=== PATIENT | female | born 1945 | race Caucasian/White ===

== ENCOUNTER → 2018-12-26 | Outpatient (CLI) | payer MEDICARE, BC, OTHER | LOC: M.RAD 10:00 | DX: Z12.31 Encounter for screening mammogram for malignant neoplasm of breast (principal) ==

== ENCOUNTER → 2019-01-09 | Outpatient (CLI) | payer MEDICARE, BC, OTHER | LOC: M.RAD 12-27 13:10 | DX: N63.21 Unspecified lump in the left breast, upper outer quadrant (principal) ==

== ENCOUNTER → 2019-01-15 | Outpatient (CLI) | payer MEDICARE, BC, OTHER ==
--- NOTE | 2019-01-17 17:07 | PATH ---
[address] [address] PATHOLOGY RPT PROCEDURE Name: JESSICA PONCE Room: [facility] Tony#: [id number] Admission: 01/15/19 Date of : 45 Discharge: Report #: [id number] Path Case #: [id number] [facility] Accession Number: [id number] . 01 Material submitted: . LEFT BREAST, 2:00, 5CMFN . 01 Clinical history: . 0.87 x 0.63 x 0.81 cm . 02 Diagnosis: Left breast, 2:00, 5 cm from nipple, image guided core biopsy: - INFILTRATING LOBULAR CARCINOMA, LOW-GRADE, SPANNING 1 CM, ASSOCIATED WITH PROMINENT LOBULAR CARCINOMA IN SITU. SEE COMMENT. (DANIEL:seferino; 01/17/2019) MBR/01/17/2019 . 02 Comment: Specimen type: Image guided core biopsy Tumor site: Left breast, 2:00, 5 cm from nipple Tumor quantitation: Approximately 25% of submitted tissues Histologic type: Classic lobular carcinoma Histologic grade: I of III (low-grade) Tubules, nuclei and mitoses: 2, 1, 1 LVSI: Not identified Microcalcifications: Not identified Markers: Breast tumor profile pending Block: A3 . . Multiple tissue cores show foci of infiltrating tumor with a predominance of "Montserratian filing" as well as small nests and focal tubule formation (tubulolobular). Abundant lobular carcinoma in situ, generally low nuclear grade but noted focally to have higher nuclear grade features, are seen within multiple cores and not associated with immediately adjacent infiltrating tumor. Properly controlled E-cadherin stain performed on A2 shows the infiltrating tumor cells as well as in situ components to be negative, supporting the classification. Breast tumor profile studies are pending on A3 and will be the subject of an addendum report. Jessica Ricci ([facility] Breast Navigator) notified at approximately 1035 on 01/17/2019. Reviewed with Dr. Blayne Potter who agrees with the diagnosis. (DANIEL:seferino; 01/17/2019) . 02 Electronically signed: . Quinton Mace MD, Pathologist NPI- [id number] . 01 [place] [address] PATHOLOGY RPT PROCEDURE Name: JESSICA PONCE Room: [facility]#: [id number] Admission: 01/15/19 Date of : 45 Discharge: Report #: [id number] Path Case #: [id number] Gross description: . Received in formalin labeled "Jessica Ponce, left breast 2:00 5 cm FN," are multiple needle cores of yellow-zamora fibrofatty tissue measuring 3.1 x 3.6 x 0.7 cm in aggregate dimensions. The tissue is submitted in its entirety in cassettes A1 through A3. The cold ischemic time is less than 1 minute. The total formalin fixation time is 12 hours and 15 minutes. (TSD; 01/15/2019) TOB/TOB . 02 Pathologist provided ICD-10: C50.012 . 02 CPT . 070770, C14208 Specimen Comment: A courtesy copy of this report has been sent to Specimen Comment: [phone], , . Specimen Comment: Report sent to ,DR HUGHES / DR HEBERT Performed at: 01 [facility] [address], [place], [place] [id number] MD Bryce Sol MD Phone: [phone] Performed at: 02 [facility] [place] [address], [place], [place] [id number] MD Quinton Mace MD Phone: [phone]
== END | disposition home or self-care (01) ==
LOC: M.ULTRA 08:13
DX: C50.412 Malignant neoplasm of upper-outer quadrant of left female breast (principal)

== ENCOUNTER → 2019-01-29 | Outpatient (CLI) | payer MEDICARE, BC, OTHER ==
[~2019-01-29] MED LIST: ALEVE220 MG PO; ALL DAY ALLERGY10 M3 PO; B12INJ IM; BENTYL 10 MG CA10 M1 PO; CLOBETASOL PROP15 GM TOP; LEXAPRO20 MG PO; LOPERAMIDE2 MG PO; MULTIPLE VITAM1 EAC2 PO; SYNTHROID125 MC1 PO; TOVIAZ4 M1 PO; TUMS PO; VITAMIN D3400 UNIT PO
[2019-01-29 13:57] LABS: CREATININE 0.9 mg/dL (0.6-1.3)
== END ==
LOC: M.LAB 13:26 → M.MRI 14:30
PROVIDERS: Surgery
DX: C50.912 Malignant neoplasm of unspecified site of left female breast (principal); N63.23 Unspecified lump in the left breast, lower outer quadrant; R92.2 Inconclusive mammogram

== ENCOUNTER → 2019-02-08 | Outpatient (CLI) | payer MEDICARE, BC, OTHER ==
--- NOTE | ~2019-02-08 | ONC ---
[address] [address] RADIATION ONCOLOGY NOTE Name: JESSICA PONCE Room: [employer].#: [id number] Admission: 02/08/19 Attend Phys: Karri Li MD Discharge: Date of : 45 Report #: [id number] THIS REPORT FOR: //name// CC: Karri Corbett DATE OF SERVICE: 02/08/2019 RADIATION ONCOLOGY CONSULTATION NOTE REFERRING PHYSICIANS: Include Adnrae Blake M.D. PRIMARY SITE AND HISTOPATHOLOGY: The patient has an early infiltrating lobular carcinoma of the left breast at this point. HISTORY OF PRESENT ILLNESS: The patient is a 73-year-old woman, who had a bilateral mammogram on 12/26/2018, which revealed a 1.1 cm focal asymmetry at the 2 o'clock position of the left breast. She had a left breast ultrasound, which revealed a 0.65 cm x 0.85 cm x 1.3 cm lesion in the upper outer quadrant of the left breast. The patient had a biopsy of that area on 01/15/2019 and that revealed an infiltrating lobular carcinoma at 2 o'clock position of the left breast, it was low grade and spanned about 1 cm. The patient had an MRI of both breasts on 01/29/2019, which revealed a mass in the left breast at the 2 o'clock position measuring 1.5 cm with post-biopsy changes. The patient presents to discuss her treatment options. PAST MEDICAL HISTORY AND PAST SURGICAL HISTORY: Includes osteoarthritis, hearing loss, cataracts. She had a cholecystectomy in the past. She was treated for a fractured wrist in the past. MEDICATIONS: Include 125 mcg of levothyroxine per day, dicyclomine, Toviaz, escitalopram. She takes Aleve as needed, Zyrtec. She uses ketaconazole cream p.r.n. Loperamide as needed. ALLERGIES: INCLUDE PENICILLIN, DARVON, CEFACLOR. OBSTETRICS: Menarche at age 12, menopause in 1987. She is 0, para 0. She is an adopted child. FAMILY HISTORY: Mother had breast cancer, father had lung cancer and a brother had esophageal cancer. SOCIAL HISTORY: The patient is retired. She is . Ethanol, she does not drink alcohol containing drinks. Cigarettes, she does not smoke cigarettes. REVIEW OF SYSTEMS: [place] [address] RADIATION ONCOLOGY NOTE Name: JESSICA PONCE Room: [facility]#: [id number] Admission: 02/08/19 Attend Phys: Karri Li MD Discharge: Date of : 45 Report #: [id number] GENERAL: She denied having any fevers or chills. SKIN: She said that she uses the ketaconazole shampoo for rash that her recreational aide is treating on her scalp. LYMPH NODES: She denied having enlarged or painful glands in the underarms. ENDOCRINE: She denied having any hot or cold intolerance. HEMATOLOGY/IMMUNOLOGY: Denied having any recent bleeding. MUSCULOSKELETAL: She has osteoarthritis. HEAD AND NECK: She denied having any headaches. RESPIRATORY: She denied having any shortness of breath. CARDIOVASCULAR: She denied having palpitations. GASTROINTESTINAL: She states she has diarrhea and takes dicyclomine as well as Lomotil as needed. NEUROLOGIC: Because of arthritis, she says she has balance issues. PHYSICAL EXAMINATION: With my nurse, Gladys Wagner present: VITAL SIGNS: Height 5 feet 4 inches, weight 276.6 pounds, blood pressure 120/72, pulse 84, respirations 24, oxygen saturation 96%. LYMPH NODES: She had no palpable cervical, supraclavicular or axillary lymphadenopathy. GENERAL AND PSYCHIATRIC: She was alert, oriented, in no acute distress. EYES: Pupils are equal, round, react to light and accommodation. Extraocular movement was intact. HEART: Had a regular rate and rhythm without murmur. LUNGS: Clear to auscultation. BREASTS: Left breast had no suspicious palpable masses. BREASTS: Right breast had no suspicious palpable masses. ABDOMEN: Nontender. Spleen was not palpable. Liver was at the costal margin. EXTREMITIES: Had no clubbing, cyanosis or edema. ASSESSMENT AND PLAN: The patient was told that her local treatment options include mastectomy versus breast conservation therapy. I told her that with mass that is based on studies such as NSABP B-06, where patients with early breast cancers were randomized to total mastectomy versus lumpectomy alone versus lumpectomy and radiation therapy. At 20 years followup, there is no difference in overall survival. In the addition of radiation therapy to lumpectomy reduced local failure from 39%-14%. She was told that in case of mastectomy that most of the people do not receive postoperative radiation therapy. In that situation, except they have a higher risk features that put her at high risk for local recurrence, such as involved lymph nodes. She has breast conservation therapy that radiation therapy would be indicated for lymph nodes were involved. It would be optional if she did not have lymph nodes involved and her tumor was less than 2 cm. The tumor was 90% estrogen receptor positive, 80% progesterone receptor positive and HER-2 negative that is based on the CALGB study, which randomize patients of over 70 years of age with T1 estrogen receptor-positive breast cancers with no lymph node involvement to tamoxifen alone versus radiation therapy and tamoxifen and at 10 [place] [address] RADIATION ONCOLOGY NOTE Name: JESSICA PONCE Room: [employer].#: [id number] Admission: 02/08/19 Attend Phys: Karri Li MD Discharge: Date of : 45 Report #: [id number] no difference in survival, but the radiation therapy did lower the local recurrence rate from 10%-2%. So the risks, benefits and logistics of radiation therapy were explained to the patient in detail. The patient right now wants to try to proceed with lumpectomy if possible and I asked the patient to return for followup appointment to see me after surgery was completed to review the pathology and then finalize the management plan. Thank you very much for this consult. By: [id number] Li MD /diego
== END ==
LOC: M.RTH 05:03
DX: C50.912 Malignant neoplasm of unspecified site of left female breast (principal); M19.90 Unspecified osteoarthritis, unspecified site; Z90.49 Acquired absence of other specified parts of digestive tract; Z79.899 Other long term (current) drug therapy; Z88.8 Allergy status to other drugs, medicaments and biological substances; Z88.0 Allergy status to penicillin; Z92.21 Personal history of antineoplastic chemotherapy

== ENCOUNTER → 2019-02-27 | Day surgery (SDC) | payer MEDICARE, BC, OTHER ==
[~2019-02-27] MED LIST changes: +VITAMIN B-12500 MCG PO
[2019-02-27 10:49] LABS: HEMATOCRIT 41.3 % (37.0-47.0); HEMOGLOBIN 13.9 gm/dL (12.0-15.0); MCH 30.3 pg (26.0-34.0); MCHC 33.6 g/dL (28.0-37.0); MCV 90.1 fL (80.0-100.0); MPV 7.3 fl. (7.2-11.1); RBC 4.58 mil/uL (4.20-5.00); RDW-CV 13.9 % (10.5-14.5); WBC 7.3 thou/uL (4.0-11.0)
[2019-02-27 10:59] LABS: CALCIUM 9.4 mg/dL (8.5-10.1); CREATININE 1.1 mg/dL (0.6-1.3); POTASSIUM 3.8 mmol/L (3.5-5.1)
--- NOTE | 2019-02-27 15:39 | EKG ---
[place] [address] ELECTROCARDIOGRAM REPORT Name: JESSICA PONCE Room: [facility].#: [id number] Admission: 02/27/19 Attend Phys: Jessica Chua DO Discharge: Date of : 45 Report #: [id number] THIS REPORT FOR: //name// [facility] Test Date: 2019-02-27 Test Time: 11:04:11 Pat Name: JESSICA KRIS Department: Room: Gender: Research Attorney: : 1945 Requested By: Jessica Cuha Order Number: [id number] Ramon MD: Daniel Jackson Measurements Intervals [place] Rate: 67 P: 16 HI: 209 QRS: -15 QRSD: 91 T: 26 QT: 479 QTc: 506 Interpretive Statements Sinus rhythm Borderline left axis deviation Low voltage, precordial leads Prolonged QT interval No previous ECG available for comparison Electronically Signed On 02-27-2019 15:39:00 CDT by Daniel Jackson [email or web address] <ELECTRONICALLY SIGNED> By: Daniel Jackson MD, [facility] 02/27/19 1539 1104 03 Daniel Jackson MD, FACC /EPI
--- NOTE | 2019-03-06 16:06 | PATH ---
[address] [address] PATHOLOGY RPT PROCEDURE Name: JESSICA PONCE Room: [facility]..#: [id number] Admission: 02/27/19 Date of : 45 Discharge: Report #: [id number] Path Case #: [id number] LCA Accession Number: [id number] . 01 Material submitted: . PART A: breast - LEFT BREAST MASS, SHORT SUPERIOR, LONG LATERAL. Modifiers: left PART B: lymph node - LEFT SENTINEL LYMPH NODE. Modifiers: left . 01 Clinical history: . Left breast neoplasm, left breast lobular carcinoma in situ . 02 Diagnosis: A. LEFT BREAST MASS: - MULTICENTRIC LOBULAR CARCINOMA, LOW GRADE, IN THREE SEPARATE FOCI MEASURING 6 MM X 6 MM X 3 MM ("POSSIBLE NODULE"), 18 X 12 X 10 MM ("MASS #1"), AND 20 X 11 X 10 MM ("MASS #2"), WITH INVOLVEMENT OF INKED DEEP MARGIN (TOWARDS LATERAL ASPECT) BY "MASS #2". - EXTENSIVE LOBULAR CARCINOMA IN SITU, LOW GRADE. - Changes of prior biopsy. See comment. . B. Left sentinel lymph node: - One benign lymph node (0/1). See comment. LBQ/03/05/2019 . 02 Comment: Surgical Pathology Cancer Case Summary INVASIVE CARCINOMA OF THE BREAST . Procedure ___ Wire localization lumpectomy Specimen Laterality ___ Left + Tumor Site + ___ Not specified Tumor Size ___ Greatest dimension of largest invasive focus >1 mm: 20 mm Histologic Type ___ Invasive lobular carcinoma . Histologic Grade (Karel Histologic Score) . Glandular (Acinar)/Tubular Differentiation ___ Score 3 (<10% of tumor area forming glandular/tubular structures) Nuclear Pleomorphism ___ Score 1 (nuclei small with little increase in size in comparison with normal breast epithelial cells, regular outlines, uniform nuclear chromatin, little variation in size) [place] [address] PATHOLOGY RPT PROCEDURE Name: JESSICA PONCE Room: [facility] M.R.#: [id number] Admission: 02/27/19 Date of : 45 Discharge: Report #: [id number] Path Case #: [id number] Mitotic Rate ___ Score 1 (< or equal to 3 mitoses per mm2 Overall Grade ___ Grade 1 (scores of 3, 4, or 5) . + Tumor Focality + ___ Multiple foci of invasive carcinoma + ___ Number of foci: 3 + Sizes of individual foci: 6x6x3 mm, 61r36h95 mm, and 68u58r76 mm . Ductal Carcinoma In Situ (DCIS) ___ Not identified + Lobular Carcinoma In Situ (LCIS) + ___ Present . Margins Invasive Carcinoma Margins ___ Positive for invasive carcinoma ___ Margin: Deep (towards lateral) DCIS Margins ___ Not applicable (no DCIS in specimen) . Regional Lymph Nodes ___ Uninvolved by tumor cells Number of Lymph Nodes Examined: 1 Number of Brewster Nodes Examined: 1 . Treatment Effect + ___ No known presurgical therapy + Lymphovascular Invasion + ___ Not identified + Dermal Lymphovascular Invasion + ___ No skin present . PATHOLOGIC STAGE CLASSIFICATION (pTNM, AJCC 8TH EDITION) TNM Descriptors ___ m (multiple foci of invasive carcinoma) Primary Tumor (invasive carcinoma) pT ___ pT1: Tumor less than or equal to 20 mm in greatest dimension Regional Lymph Nodes (pN) Modifier ___ (sn): Brewster node evaluated. Category (pN) ___ pN0: No regional lymph node metastasis identified or ITCs only + Additional Pathologic Findings + Specify: Changes of prior biopsy + Ancillary Studies + Estrogen Receptor (ER) + ___ Positive 90% [place] [address] PATHOLOGY RPT PROCEDURE Name: JESSICA PONCE [facility] [id number] Admission: 02/27/19 Date of : 45 Discharge: Report #: [id number] Path Case #: [id number] + Progesterone Receptor (PgR) + ___ Positive 80% + HER2 (by immunohistochemistry) + ___ Negative (Score 1+)/Not overexpressed + Ki-67 + ___ 5% (025-[id number] A3) + Microcalcifications + ___ Not identified + Clinical History Prior history of breast cancer site diagnosis: Previous left breast 2:00 5 cm from nipple image guided core biopsy showing infiltrating lobular carcinoma, low grade, spanning 10 mm with prominent LCIS ([id number]-[id number]). . . Lobular carcinoma is seen to involve the deep margin near the lateral aspect in sections taken from "mass #2" (A16 and A19) where there is an approximately 5 mm span of involvement (A19). The next closest approach to a margin is seen in a tissue section taken from adjacent to the "possible nodule" where a focus is located 8 mm away from the superficial margin (A2). This same focus is located 10 mm away from the next closest approach to a margin (medial) by neoplasm (A2). . Extensive LCIS is seen in sections taken from throughout the specimen. A properly controlled keratin AE1/AE3 immunohistochemical stain is performed on both B1 and B2 and reveals no evidence of metastatic tumor. (DANIEL/db; 03/05/2019) . 02 Electronically signed: . Quinton Mace MD, Pathologist NPI- [id number] . 01 Gross description: . A. The specimen is received in formalin, labeled " Jessica Ponce, left breast mass, short superior, long lateral", is a 55 g, oriented, fibroadipose tissue with sutures: Short = superior, long = lateral, with a needle wire coursing from mid anterior to inferior, adjacent to lateral margin. The specimen measures: superior to inferior = 6.0 cm, medial to lateral = 5.4 cm and superficial to deep = 2.8 cm. The specimen is inked as follows: Superior = red, inferior = green, medial = orange, lateral = yellow, superficial = blue and deep = black. The specimen is serially sectioned from superior to inferior into 15 slices. (Slice #1 = superior and slice #15 = inferior margins) to reveal a possible nodule and two masses. The nodule measures 0.6 x 0.6 x 0.3 cm (slice #8 and 9). The nodule is 0.9 cm to the closest deep margin and 1.3 cm from the closest superficial margin and greater than 2.0 cm from the remaining margins. Mass #1 is on the medial aspect and is 0.9 cm from the nodule. Mass #1 measures 1.8 x 1.2 x 1.0 cm (slice 9 to slice #12) and abuts the medial and deep margins and is 1.0 cm from superficial and greater than 2.0 cm from the remaining margins. Mass #2 is 1.7 cm lateral to Mass #1 [place] [address] PATHOLOGY RPT PROCEDURE Name: JESSICA PONCE Room: [facility]#: [id number] Admission: 02/27/19 Date of : 45 Discharge: Report #: [id number] Path Case #: [id number] measures 2.0 x 1.1 x 1.0 cm (slice #11 to #15) and abuts the lateral, deep and inferior margins and is greater than 2.0 cm from the remaining margins. Both the masses are ricci-white, solid, with infiltrative borders. The remaining parenchyma is yellow and fatty, with zamora-white fibrous strands interspersed in the ratio 95:05. (Slice # 9 to Slice #12 each trisected with alternating red and green ink at intersection/edges introduced with sectioning). A diagram is prepared with slice numbers and tissue sections for reference. . Sanitary Engineer tissue is submitted as follows: A1. Slice #1, superior margin, perpendicular sectioned A2-A4. Slice #7, trisected, uninvolved slice adjacent to possible nodule A5-A7. Slice #8, trisected, A6 = possible nodule A8-A10. Slice # 9, trisected (A8 = Mass #1 abutting medial margin and possible nodule closest to deep and superficial margins) A11-A13. Slice 10, trisected (A11 = Mass #1) A14-A16. Slice # 11, trisected (A14 and A15 = mass #1 abutting deep margin; A16 = Mass # 2) A17-A19. Slice #12, trisected (A17 and A18 = Mass #1 and A19 = Mass #2 abutting deep margin) A20-A21. Slice # 13, bisected (A21 = Mass #2, abutting lateral margin) A22-A23. Slice # 14, bisected (A23= Mass #2) A24. Slice # 15, inferior margin, perpendicular sectioned (section inked black = possible Mass #2) . Specimen excised at: 1350 on 02/27/19, placed in formalin at: 1403 on 02/27/19, formalin exposure: Approximately 34 hours and 35 minutes . B. The specimen is received in formalin, labeled "Jessica Ponce, left sentinel lymph node", is an irregular fragment of yellow lobulated adipose tissue measuring 3.0 x 2.5 x 1.2 cm. Sectioning reveals a gonsales-pink, rubbery lymph node measuring 1.8 x 0.8 x 0.5 cm. The lymph node is serially sectioned to show a gonsales-yellow cut surface. The specimen is entirely submitted as follows: B1. Brewster lymph node B2. Remaining adipose tissue for possible additional lymph nodes candidate ([facility]; 02/28/2019) SHS/SHS . 02 Pathologist provided ICD-10: C50.912, D05.12, Z17.0 . 02 CPT . 528855, 466848, U55743 Specimen Comment: A courtesy copy of this report has been sent to Specimen Comment: [phone], , . Specimen Comment: Report sent to ,DR WHEELER / DR HUGHES Performed at: 01 [facility] [address] [place] [address] PATHOLOGY RPT PROCEDURE Name: JESSICA PONCE Room: [facility].#: [id number] Admission: 02/27/19 Date of : 45 Discharge: Report #: [id number] Path Case #: [id number] [address], [place], [place] [id number] MD Bryce Sol MD Phone: [phone] Performed at: 02 [facility] [address] , [place], [place] [id number] MD Quinton Mace MD Phone: [phone]
--- NOTE | 2019-03-15 13:11 | OP ---
[address] [address] OPERATIVE REPORT Name: JESSICA PONCE Room: [facility]..#: [id number] Admission: 02/27/19 Attend Phys: Jessica Chua DO Discharge: Date of : 45 Report #: [id number] THIS REPORT FOR: //name// CC: Jessica Corbett DATE OF SERVICE: 02/27/2019 PREPROCEDURE DIAGNOSIS: Left breast cancer. POSTPROCEDURE DIAGNOSIS: Left breast cancer. FINDINGS: Left breast wire localization left deep sentinel lymph node. SURGEON: Jessica Chua DO COSURGEON: Jagdeep Ackerman. BAND SPLICER: Alona Stock, PGY2 OPERATION PERFORMED: Left breast wire localized lumpectomy and left deep sentinel lymph node dissection. ANESTHESIA: LMA and local. ESTIMATED BLOOD LOSS: 30. DRAINS: None. SPECIMEN: Left breast lumpectomy and left sentinel lymph node. COMPLICATIONS: None. CONDITION: Stable. DISPOSITION: PACU to home. HISTORY OF PRESENT ILLNESS: The patient is a very pleasant lady, who presented to my office with a change in her mammogram. She underwent a left breast ultrasound-guided biopsy with findings of a left breast cancer. She was seen by Oncology and Radiation Oncology and decided to move forward with a lumpectomy and a sentinel lymph node dissection. Risks and benefits were all reviewed in detail and the patient agreed to proceed. PROCEDURE NOTE: [facility] [place] [address] OPERATIVE REPORT Name: JESSICA PONCE Room: [facility].#: [id number] Admission: 02/27/19 Attend Phys: Jessica Chua DO Discharge: Date of : 45 Report #: [id number] Radiology where she underwent left breast needle localization x 2 and a left breast sentinel lymph node injection. [facility] where she underwent informed consent. She was then taken to the operating room where she was laid supine on the operating room table. SCDs were placed on bilateral lower extremities. Antibiotics were given in the perioperative period. General LMA anesthesia was induced by Anesthesia without difficulty. A 5 mL of Lymphazurin blue dye were injected in the periareolar area. Left breast and axilla were then prepped and draped in the standard sterile fashion. Timeout was performed to verify patient and procedure. I began by marking the tips of the wires. A 10 mL of 0.5% Marcaine were infiltrated the area of our planned incision. A curvilinear incision was then made with #15 blade. Cautery was used for hemostasis. Then, using the 2 wires for guidance, a lumpectomy specimen was formed. Once the specimen was freed from the surrounding tissue, it was marked in the superior and lateral direction and was sent to Radiology for mammography. The radiologist did return our phone call that we had obtained the clip, the wires in the specimen. Hemostasis was assured within the cavity and I then turned my attention to the left axilla. Neoprobe was brought on to the field and the nipple was interrogated. The highest area of uptake was 6700. The axilla was then also interrogated and the area of the highest uptake was marked. A 10 mL of 0.5% Marcaine were injected in the area of our planned incision. Incision was made with #15 blade. Cautery was used for hemostasis. Weitlaner retractor was placed within the wound. Then using a combination of blunt and cautery dissection, I gently dissected down into the axilla utilizing the Neoprobe and the blue dye for guidance. Clavipectoral fascia was clearly identified and was gently incised. We then continued to move deeper into the axilla. Once we were almost to the chest wall, a clear line of blue dye was identified heading to a hot lymph node. The area of highest uptake while in the axilla was approximately 515. Lymph node was gently elevated using an Allis clamp and was dissected free from the surrounding tissue utilizing blunt and cautery dissection. Outside of the axilla, the highest uptake on the lymph node was 652. This was handed off as our left deep sentinel lymph node. Neoprobe was returned into the axilla and there was 0 further uptake. Hemostasis was assured within both wounds. Bev was then introduced into both wounds. Both wounds were then closed in a layered fashion using deep and superficial stitches of 3-0 Vicryl in inverted interrupted fashion. Skin wounds were closed with 4-0 Monocryl. A total of 30 mL of 0.5% Marcaine were used to anesthetize the wounds. Wounds were then cleansed and covered with Mastisol, Steri-Strips, 4 x 4's, and a Tegaderm. The patient was then allowed to awaken from anesthesia, was extubated and transported to the recovery room with no further difficulties. Counts were correct x 2 at the conclusion of the case. <ELECTRONICALLY SIGNED> By: Jessica Chua DO 03/15/19 1311 1059 Brigido Chua DO /nt
== END | disposition home or self-care (01) ==
LOC: M.SUR 10:12 → M.RAD 11:30 → EDSTATUS 11:30
PROVIDERS: Surgery
DX: C50.912 Malignant neoplasm of unspecified site of left female breast (principal); D36.0 Benign neoplasm of lymph nodes; Z17.0 Estrogen receptor positive status [ER+]; Z79.899 Other long term (current) drug therapy; Z88.0 Allergy status to penicillin; Z88.8 Allergy status to other drugs, medicaments and biological substances

== ENCOUNTER → 2019-03-15 | Day surgery (SDC) | payer MEDICARE, BC, OTHER ==
[~2019-03-15] MED LIST changes: -VITAMIN B-12500 MCG PO
--- NOTE | ~2019-03-15 | OP ---
[address] [address] OPERATIVE REPORT Name: JESSICA PONCE Room: [facility].#: [id number] Admission: 03/15/19 Attend Phys: Jessica Chua DO Discharge: Date of : 45 Report #: [id number] THIS REPORT FOR: //name// CC: Jessica Corbett DICTATED BY: Jagdeep Ackerman DO DATE OF SERVICE: 03/15/[address] Jessica Chua. PREOPERATIVE DIAGNOSIS: Left breast cancer. POSTOPERATIVE DIAGNOSIS: Left breast cancer. PRIMARY SURGEON: Jessica Chua DO CO-SURGEON: Jagdeep Ackerman DO, PGY2. SUPERVISOR TOWER: Alona Stock DO, PGY2. OPERATION PERFORMED: Left breast reexcision lumpectomy for positive deep and lateral margins. ANESTHESIA: General and local. ESTIMATED BLOOD LOSS: 10. SPECIMEN REMOVED: Additional lateral left breast margin and additional deep left breast margin. Specimens marked with silk suture, short superior, long lateral. COMPLICATIONS: None. INDICATION FOR PROCEDURE: The patient is a pleasant 73-year-old female status post left breast lumpectomy for left breast cancer. The patient was found to have lobular carcinoma with positive lateral and deep margin on final pathology, recommended additional excision lumpectomy for positive deep and lateral margins. Full discussion of procedure, alternatives, risks and possible complications were discussed to include but not limited to bleeding, infection, postoperative pain, scarring, seroma, hematoma, need for further surgery, poor wound healing and positive margin on final pathology. The patient voiced understanding the risks and agreed to proceed with surgery. DESCRIPTION OF PROCEDURE: The patient was again seen and examined in [place] [id number] OPERATIVE REPORT Name: JESSICA PONCE Room: [facility].#: [id number] Admission: 03/15/19 Attend Phys: Jessica Chua DO Discharge: Date of : 45 Report #: [id number] preoperative holding. Fully informed written consent was obtained. Preoperative antibiotics were given. The patient was subsequently transported to the operating room suite, placed on operating table in a supine position. At this time, Anesthesia induced general anesthesia via LMA, and this was successful. SCDs were placed on bilateral lower extremity calves. Grounding pad was placed in right lateral thigh. Arms were placed on arm boards, all the patient's joints and extremities were padded and protected. The patient was prepped and draped using standard sterile fashion. Time-out was performed prior to onset of procedure, began by injecting 10 mL of 0.5% Marcaine over the left breast lumpectomy incision. A 15 blade scalpel was then used to open the old scar. Once we reached through the dermal layer, there was noted to be a quite large seroma that was suctioned. Once the breast cavity was fully opened, [employer] retractors were used and using smooth pickups and electrocautery, an additional lateral breast margin was taken. This was marked with a 2-0 silk suture, short superior, long lateral and passed off for permanent pathology. Next, an additional deep margin was taken in the same fashion as previously using electrocautery. Once the specimen was removed, it was also marked with silk sutures, short superior, long lateral and passed off for permanent pathology. Wound cavity was copiously irrigated and suctioned. There was noted to be no ongoing hemorrhaging. Bev was placed within the breast cavity, and a layered closure was then performed through subcutaneous tissue using 3-0 interrupted Vicryl sutures. Next, the dermis was closed in a similar fashion using 3-0 interrupted Vicryl sutures. Skin was closed using a running subcuticular 4-0 Monocryl. An additional 20 mL of 0.5% Marcaine was injected for local anesthetic. Breast was cleansed using wet and dry lap. Sterile dressing was then applied, Mastisol, Steri-Strips, 4 x 4's, medium Tegaderm. The patient tolerated the procedure well and was extubated in the OR, transferred to PACU in stable condition after recovered from anesthesia. PLAN: Discharged home. Follow up in the office with Dr. Chua in 1 week. By: 1321 1823Ctere Chua, /nt
--- NOTE | 2019-03-21 18:06 | PATH ---
[address] [address] PATHOLOGY RPT PROCEDURE Name: JESSICA PONCE Room: [facility].#: [id number] Admission: 03/15/19 Date of : 45 Discharge: Report #: [id number] Path Case #: [id number] [facility] Accession Number: [id number] . 01 Material submitted: . PART A: breast - LEFT LATERAL MARGIN-SHORT SUPERIOR/LONG LATERAL. Modifiers: left, lateral PART B: breast - DEEP MARGIN-SHORT SUPERIOR/LONG LATERAL. Modifiers: left, DEEP . 01 Clinical history: . Left lobular carcinoma, LCIS, reexcision left breast for margins . 02 Diagnosis: A. Left lateral margin: - RESIDUAL LOBULAR CARCINOMA, LOW-GRADE, SPANNING AT LEAST 6 MM, WITH FOCAL INVOLVEMENT OF MEDIAL MARGIN WELL OF SUPERIOR MARGIN (12 MM AWAY FROM HISTOLOGIC CHANGES OF PRIOR BIOPSY). - EXTENSIVE LOBULAR CARCINOMA IN SITU (LCIS), LOW-GRADE. - See comment. . B. Deep margin: - RESIDUAL LOBULAR CARCINOMA, LOW-GRADE, SPANNING AT LEAST 6 MM, WITH ALL SURGICAL MARGINS FREE OF INVOLVEMENT BUT VERY CLOSELY APPROXIMATING DEEP (0.1 MM AWAY). SEE COMMENT. - EXTENSIVE LCIS, LOW-GRADE - See comment. (DANIEL:[facility] 03/20/2019) QTP/03/20/2019 . 02 Comment: In the left lateral margin, the tumor is seen to involve a 0.1 mm span of the superior margin (A7). A properly controlled keratin AE1/AE3 stain performed on A1, highlights involvement of the medial margin. All surgical margins are free of involvement by invasive neoplasm in the "deep margin" (B), although a properly controlled keratin AE1/AE3 stain performed on B4 highlights the neoplastic cells approaching to 0.1 mm away from the deep margin. Foci of lobular carcinoma are seen in each of cassettes A1, A3, A7, B1, B4, and B16 and it is not certain if these may represent multicentric foci as the prior lumpectomy specimen was noted to have three separate foci of invasive tumor ([id number]). In each of the two specimens (A and B), if these foci of invasive neoplasm represent residual foci from a single tumor, the span of involvement is estimated at 30 mm and 40 mm, respectively, based on tissue sections in which it identified. . Extensive LCIS is seen in both specimens as well and noted to approach intermediate grade appearance in scattered areas, [place] [address] PATHOLOGY RPT PROCEDURE Name: JESSICA PONCE Room: [facility] M.R.#: [id number] Admission: 03/15/19 Date of : 45 Discharge: Report #: [id number] Path Case #: [id number] grade/pleomorphic LCIS. . Discussed with Dr. Jessica Chua on am of 03/21/2019. . . (DANIEL:[facility] 03/20/2019) . 02 Electronically signed: . Quinton Mace MD, Pathologist NPI- [id number] . 01 Gross description: . A. The specimen is received in formalin, labeled " Jessica Ponce, left lateral margin, short superior, long lateral", is a 28 g, oriented, fibroadipose tissue with sutures: Short = superior and long = lateral. The specimen measures medial to lateral = 6.0 cm, superior to inferior = 4.2 cm and a superficial to deep = 1.5 cm. The specimen is inked as follows: Superior = red, inferior = green, medial = orange, lateral = yellow, superficial = blue and deep = black. The specimen is serially sectioned from medial to lateral into 10 slices. (Slice #1 = medial and slice #10 = lateral margins) to reveal a zamora-white, indurated, focal area measuring 2.0 x 1.6 x 0.3 cm (slice #2 to slice #6). The lesion is abutting the superficial and superior margins and is 0.4 cm closest to medial and greater than 2.0 cm from the remaining margins. The remaining parenchyma is yellow and fatty, with zamora-white fibrous strands interspersed in the ratio 90 :10. . The specimen is entirely submitted as follows: A1. Slice #1, medial margin, perpendicular sectioned. A2. Slice #2, medial most aspect of lesion. A3-A4. Slice #3, bisected, A3 = lesion abutting superficial and superior margins. A5-A6. Slice #4, bisected. A7-A8. Slice #5, bisected. A9-A10. Slice #6, bisected, lateral most aspect of lesion. A11-A12. Slice #7, bisected. A13-A14. Slice 8, bisected. A15-A16. Slice 7, 9, bisected. A17. Slice #10, lateral margin, perpendicular sectioned. . Specimen excised at: 1240 on 03/15/19, placed in formalin at: 1313 on 03/15/19, formalin exposure: approximately 52 hours. . B. The specimen is received in formalin, labeled "Jessica Ponce, deep margin, short superior, long lateral", is a 21 g, oriented, fibroadipose tissue with sutures: Short = superior and long = lateral. The specimen measures superior to inferior = 5.5 cm, medial to lateral = 4.7 cm and superficial to deep = 1.0 cm. The specimen is inked as follows: Superior = red, inferior = green, medial = orange, lateral = yellow, superficial = [place] [address] PATHOLOGY RPT PROCEDURE Name: JESSICA PONCE Room: [facility]#: [id number] Admission: 03/15/19 Date of : 45 Discharge: Report #: [id number] Path Case #: [id number] blue and deep = black. The specimen is serially sectioned from superior to inferior into 11 focus slices. (Slice #1 = superior and slice #11 = inferior margins) to reveal a predominantly glistening, yellow lobulated fatty cut surface with zamora-white fibrous strands interspersed in the ratio 90:10 and indurated superficial margin in slice #9 to slice #11. Photographs are taken uploaded and attached. . The specimen is entirely submitted as follows: B1-B2. Slice #1, superior margin, perpendicular sectioned B3-B4. Slice #2, bisected. B5-B6. Slice #3, bisected B7-B8. Slice #4, bisected. B9-B10. Slice #5, bisected. B11-B12. Slice #6, bisected. B13-B14. Slice #7, bisected. B15. Slice #8. B16. Slice #9. B17. Slice #10. B18. Slice #11, inferior margin, perpendicular sectioned. . Specimen excised at: 1242 on 03/15/19, placed in formalin at: 1313 on 03/05/19, formalin exposure: approximately 52 hours. (SWS; 03/16/2019) SHS/SHS . 02 Pathologist provided ICD-10: D05.02 . 02 CPT . 025387, 306188, D47045 Specimen Comment: A courtesy copy of this report has been sent to Specimen Comment: [phone]. Specimen Comment: Report sent to Performed at: 01 [facility] [address], [place], [place] [id number] MD Bryce Sol MD Phone: [phone] Performed at: [address] [facility] [address] [place], [place] [id number] MD Quinton Mace MD Phone: [phone]
== END | disposition home or self-care (01) ==
LOC: M.SUR 06:56
DX: D05.02 Lobular carcinoma in situ of left breast (principal); Z88.0 Allergy status to penicillin; Z88.8 Allergy status to other drugs, medicaments and biological substances; Z79.899 Other long term (current) drug therapy

== ENCOUNTER 2019-04-22 06:40 | Observation (INO) | payer MEDICARE, BC, OTHER ==
[~2019-04-22] VITALS: Ht 162.6 cm; Wt 125.6 kg
--- NOTE | ~2019-04-22 | H ---
[address] [address] HISTORY AND PHYSICAL Name: JESSICA PONCE Room: [address] Tony Tony#: [id number] Admission: 04/22/19 Attend Phys: Jessica Chua DO Discharge: 04/23/19 Date of : 45 Report #: [id number] THIS REPORT FOR: //name// Please refer to the History and Physical performed in the physician's office. By: 1201Medical Records Staff JESSICA /BUFFY
[~2019-04-22 06:40] MED LIST changes: +VITAMIN B-12500 MCG PO
[2019-04-22 07:09] LABS: HEMOGLOBIN 13.2 gm/dL (12.0-15.0); MCH 30.1 pg (26.0-34.0); MCHC 33.7 g/dL (28.0-37.0); MCV 89.4 fL (80.0-100.0); MPV 7.4 fl. (7.2-11.1); RBC 4.37 mil/uL (4.20-5.00); RDW-CV 14.2 % (10.5-14.5); WBC 9.2 thou/uL (4.0-11.0)
[2019-04-22 07:20] LABS: CALCIUM 9.5 mg/dL (8.5-10.1); POTASSIUM 3.8 mmol/L (3.5-5.1)
[2019-04-22 07:25] LABS: ALBUMIN 3.8 g/dL (3.4-5.0); TOTAL BILIRUBIN 0.4 mg/dL (<0.1-1.0); TOTAL PROTEIN 6.9 g/dL (6.4-8.2)
[2019-04-22 11:20] VITALS: BP 112/66
--- NOTE | 2019-04-22 17:21 | NUR ---
PATIENT ADMITTED FROM PACU TO ROOM 113. ALERT AND ORIENTED X 4. PATIENT WAS ON 3L NC AFTER SURGERY, CONT PULSE OX IN PLACE. PATIENT NOW ON RA SATTING 95% RA. IVF INFUSING ORDERED. SPECIAL BRA IN PLACE WITH TOPHER DRAINS X [address] IN PL[address]. NO SKIN BREAKDOWN NOTED. REG DIET TOLERATING. SCD'S. UP TO BATHROOM WITH ASSISTANCE; BRIEFS IN PLACE FOR STRESS INCONTINENCE. ORIENTED TO CALL LIGHT. CALL LIGHT WITHIN REACH, WILL CONTINUE TO MONITOR.
[2019-04-22 20:15] VITALS: BP 112/56
[2019-04-23] VITALS: BP 105/38
[2019-04-23 04:00] VITALS: BP 108/49
--- NOTE | 2019-04-23 05:36 | NUR ---
PT SLEPT OFF AND ON OVERNIGHT. LARM WITH BULKY SURGICAL DRSG CDI, ICE PACK AND 2 TOPHER DRAINS WITH SEROSANG DRAINAGE PRESENT. CONT PULSE OX ON OVERNIGHT. ROOM AIR SAT 95%, WEARS HOME CPAP. AOX3, FORGETFUL. UP WITH ASSIST TO BR TO VOID-STRESS INCONTINENCE AND WEARS BRIEF. RFA IVF INFUSING PER PUMP. L LIMB ALERT. NO LABS THIS MORNING. RECEIVING SCHEDULED TYLENOL AND HAS DENIED NEED FOR PRN PAIN MED. VSS. ABLE TO USE CALL LITE AND MAKE NEEDS KNOWN, BED ALARM ON FOR SAFETY. SCDS ON.
[2019-04-23 07:50] VITALS: BP 115/42
--- NOTE | 2019-04-23 09:02 | OP ---
[address] [address] OPERATIVE REPORT Name: JESSICA PONCE Room: [address] Cecily#: [id number] Admission: 04/22/19 Attend Phys: Jessica Chua DO Discharge: Date of : 45 Report #: [id number] THIS REPORT FOR: //name// CC: Jessica Corbett DATE OF SERVICE: 04/22/2019 PREOPERATIVE DIAGNOSIS: Left breast lobular carcinoma. POSTOPERATIVE DIAGNOSIS: Left breast lobular carcinoma. FINDINGS: Previous left lumpectomy and left sentinel lymph node dissection. SURGEON: Jessica Chua DO COSURGEON: Roseanne Murillo, PGY2. SPECIAL DEPUTY SHERIFF: ELIJAH Arshad student. PROCEDURE PERFORMED: Left breast simple mastectomy. ANESTHESIA: LMA and local. ESTIMATED BLOOD LOSS: 100 mL. DRAINS: Two 15-[place] TOPHER drains on the left. SPECIMENS: Left breast. COMPLICATIONS: None. CONDITION: Stable. DISPOSITION: PACU to the floor. HISTORY OF PRESENT ILLNESS: The patient is a very pleasant 73-year-old female who presented to me initially with a change in her mammogram. She underwent a biopsy, which was positive for lobular carcinoma. She was seen by all appropriate consulting physicians and initially decided to proceed with a left breast lumpectomy and a left sentinel lymph node dissection. A fairly large lumpectomy was taken with the patient's cancer, it being quite large and we had positive margins. It was discussed with her at that point that she could proceed with reexcision for margin or a mastectomy and she decided to attempt a reexcision for margins. However, our second surgery continued to have a positive margin. At that point, we were forced [place] [address] OPERATIVE REPORT Name: JESSICA PONCE Room: [address] Tony Tony#: [id number] Admission: 04/22/19 Attend Phys: Jessica Chua DO Discharge: Date of : 45 Report #: [id number] Risks and benefits were discussed with her in detail and she agreed to proceed. DESCRIPTION OF PROCEDURE: The patient was brought to the operating room. She was laid supine on the operating room table. SCDs were placed on bilateral lower extremities. Clindamycin was given in the perioperative period. General LMA anesthesia was induced by anesthesia without difficulty. The left breast was prepped and draped in the standard sterile fashion. Timeout was performed to verify patient and procedure. I began by marking out the left clavicle, the left sternum, the left inframammary fold in the left chest wall. An elliptical incision was then marked out on the breast, taking care to include her previous lumpectomy site. The 30 mL of 0.5% Marcaine were injected in the planned incision. Incision was made with a 10 blade. Cautery was used for hemostasis. Then, using the cautery, our flaps were formed. We initially began by moving superiorly to the clavicle, then medially to the sternum, inferiorly to the inframammary fold and laterally to the latissimus dorsi. Allis clamps were then used to gently elevate the breast tissue off the pectoralis while cautery was used to dissect it free from the underlying pectoralis fascia. Our specimen was then marked in the superior and lateral direction and handed off for permanent pathology. Wound was copiously irrigated. There were several small areas of bleeding on the left lateral skin flap, which were easily controlled with cautery. Once hemostasis was assured, the wound was then sprinkled with Bev. Two 15-[place] TOPHER drains were then introduced through the left lower lateral flap, 1 superiorly and 1 inferiorly. The wound was then closed in a layered fashion using deep and superficial stitches of 3-0 Vicryl in inverted interrupted fashion. Skin wound was closed with running 4-0 Monocryl. Skin was then cleansed and covered with skin glue. Drains were covered with 4 x 4 and a medium Tegaderm. Surgical bra was placed. The patient was then allowed to awake from anesthesia, was extubated and transported to the recovery room with no further difficulties. Counts were correct x 2 at the conclusion of the case. <ELECTRONICALLY SIGNED> By: Jessica Chua DO 04/23/19 0902 [id number] Chua DO /nt
[2019-04-23 09:38] VITALS: BP 115/42
[2019-04-23] MEDS ORDERED: OXYCODONE HCL 55 MG PO (11:26)
--- NOTE | 2019-04-23 12:30 | NUR ---
ASSUMED CARE OF PATIENT AT APPROX 0730. ALERT AND ORIENTED X4. ASSESSMENT COMPLETED AND CHARTED. VSS ON ROOM AIR. NO COMPLAINTS OF PAIN, NAUSEA, OR SOA. PATIENT DISCHARGED AT 1220 WITH ALL PERSONAL BELONGINGS, PRESCRIPTIONS AND DISCHARGE INFORMATION.
--- NOTE | 2019-04-23 12:30 | NUR ---
PT.TO DISCHARGE HOME TODAY WITH [facility]UR[facility]. AND GRANDAUGHTER AT BEDSIDE. PT.VERY PLEASANT. DISCUSSED HH AGENCY SHE WANTED TO USE. SHE DID NOT HAVE A PREFERENCE BUT CHOSE [facility]. FAXED FACE SHEET,DISCHARGE SUMMARY,OP REPORT,HH ORDER AND MED LIST TO [facility]. HOME HEALTH PHONE NUMBER AND THAT THEY WILL CALL HER TOMORROW TO SET UP APPT. PUT ON DISCHARGE INSTRUCTIONS. PT.SAID SHE HAS AN APPT.TO SEE , A WEEK FROM TOMORROW. HAS BEEN UP AD ANGELA IN ROOM. GAIT STEADY. DENIES ANY OTHER DISCHARGE NEEDS.
== END 2019-04-23 12:20 | disposition home health service (06) ==
LOC: M.SUR 06:40 → M.TBA 10:06 → M.ORTHSURG 10:06 → M.SUR 10:59 → M.ORTHSURG 11:27
PROVIDERS: ADMIT Surgery
DX: C50.912 Malignant neoplasm of unspecified site of left female breast (principal); Z79.899 Other long term (current) drug therapy; Z88.0 Allergy status to penicillin; Z88.8 Allergy status to other drugs, medicaments and biological substances

== ENCOUNTER → 2019-12-17 | Outpatient (CLI) | payer MEDICARE, BC, OTHER ==
[~2019-12-17] MED LIST changes: +OXYCODONE HCL 55 MG PO
== END ==
LOC: M.RAD 13:00
DX: Z12.31 Encounter for screening mammogram for malignant neoplasm of breast (principal)

== ENCOUNTER → 2021-01-27 | Outpatient (CLI) | payer MEDICARE, BC, OTHER | LOC: M.RAD 14:51 | PROVIDERS: ATTEND Family Medicine | DX: Z12.31 Encounter for screening mammogram for malignant neoplasm of breast (principal) ==